=== PATIENT | male | born 1985 | race Caucasian/White ===

== ENCOUNTER 2018-09-11 22:11 | Emergency (ER) | payer MEDICAID ==
[~2018-09-11 22:11] MED LIST: HIV MEDICATION PO
--- NOTE | 2018-09-11 22:50 | NUR ---
CALLED IN WR, NO RESPONSE
--- NOTE | 2018-09-11 23:00 | NUR ---
CALLED IN WR, NO RESPONSE
--- NOTE | 2018-09-11 23:09 | NUR ---
CALLED IN WR, NO RESPONSE
== END 2018-09-11 23:10 | disposition left against medical advice (07) ==
LOC: ER 22:16
DX: Z53.21 Procedure and treatment not carried out due to patient leaving prior to being seen by health care provider (principal)

== ENCOUNTER 2018-09-12 00:25 | Emergency (ER) | payer MEDICAID ==
[~2018-09-12] VITALS: Ht 167.6 cm; Wt 63.5 kg
[2018-09-12 00:33] VITALS: BP 149/87
[2018-09-12] MEDS ORDERED: RIVAROXABAN 10 MG TABLET PO SCH (01:00)
[2018-09-12] MEDS ORDERED: RIVAROXABAN 10 MG TABLET ONE (01:08)
== END 2018-09-12 01:23 | disposition home or self-care (01) ==
LOC: ER 00:25
DX: F19.10 Other psychoactive substance abuse, uncomplicated (principal); F12.10 Cannabis abuse, uncomplicated; F17.200 Nicotine dependence, unspecified, uncomplicated; Z86.718 Personal history of other venous thrombosis and embolism; Z76.0 Encounter for issue of repeat prescription; Z86.14 Personal history of Methicillin resistant Staphylococcus aureus infection; Z86.19 Personal history of other infectious and parasitic diseases; Z59.0 Homelessness

== ENCOUNTER 2018-10-15 15:21 | Emergency (ER) | payer MEDICAID ==
[~2018-10-15] VITALS: Ht 167.6 cm; Wt 70.3 kg
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
[2018-10-15] MEDS ORDERED: HYDROCODONE/APAP 5/325MG 1 EACH TABLET ONE (15:47)
[2018-10-15] MEDS ORDERED: IBUPROFEN 600 MG TABLET PO ONE ×2 (15:47→16:00)
--- NOTE | 2018-10-15 15:50 | NUR ---
MEDICATION GIVEN, CALLED FOR FOOD TRAY
[2018-10-15] MEDS ORDERED: HYDROCODONE/APAP 5/325MG 1 EACH TABLET PO ONE (16:00)
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
--- NOTE | 2018-10-15 16:38 | NUR ---
READING INTERVENTIONIST AT BEDSIDE
[2018-10-15 16:52] VITALS: BP 142/78
--- NOTE | 2018-10-15 17:15 | NUR ---
INITIAL DUPLEX VENOUS LOWER EXT RIGHT SHOWED THROMBUS PRESENT AT CFV AND SFV LEVELS. PRELIM RESULTS ADVISED TO VLAD MACKAY AND CALLED ANCA YOST) TO HAVE STUDY CHECKED BY RADIOLOGIST.
--- NOTE | 2018-10-15 17:45 | NUR ---
Patient given written and verbal discharge instructions. Patient verbalizes understanding of instructions. Patient is ambulatory with steady gait. Refuses offer of long-term placement. Patient given list of available shelters in surrounding area [facility]. Patient discharged to home in stable condition. Written and verbal after care instructions given. Patient verbalizes understanding of instruction.
--- NOTE | 2018-10-15 17:55 | NUR ---
BEE PRODUCER AT BEDSIDE FOR BOOT APPLICATION AND TEACHING
== END 2018-10-15 18:00 | disposition home or self-care (01) ==
LOC: ER 15:21
DX: S92.342A Displaced fracture of fourth metatarsal bone, left foot, initial encounter for closed fracture (principal); S92.352A Displaced fracture of fifth metatarsal bone, left foot, initial encounter for closed fracture; S92.322A Displaced fracture of second metatarsal bone, left foot, initial encounter for closed fracture; S92.332A Displaced fracture of third metatarsal bone, left foot, initial encounter for closed fracture; L97.918 Non-pressure chronic ulcer of unspecified part of right lower leg with other specified severity; I82.491 Acute embolism and thrombosis of other specified deep vein of right lower extremity; F17.200 Nicotine dependence, unspecified, uncomplicated; Z59.0 Homelessness; Z86.19 Personal history of other infectious and parasitic diseases; X58.XXXA Exposure to other specified factors, initial encounter; Y93.02 Activity, running; Y92.89 Other specified places as the place of occurrence of the external cause; Y99.8 Other external cause status
CPT/HCPCS: 73630-TC; 93971-TC

== ENCOUNTER 2019-01-19 18:07 | Inpatient (IN) | payer MEDICAID ==
[~2019-01-19] VITALS: Ht 167.6 cm; Wt 57.2 kg
--- NOTE | 2019-01-19 18:22 | NUR ---
"CELLULITIS OF MY PENIS AND SCROTUM". C/O PAIN AND SWELLING IN GENITALS, REQUESTING CIRCUMCISION. PAIN IS 10/10, BURNING. "FEELS LIKE I'M PEEING RAZOR BLADES". ON MONITOR, IN GOWN, AND MADE COMFORTABLE. READY FOR EVAL.
[2019-01-19] MEDS ORDERED: IV NS 0.9% 1,000 ML BAG IV ONE (18:30)
[2019-01-19] MEDS ORDERED: MUPIROCIN OINT 2% 22 GM TUBE TP ONE (18:30)
[2019-01-19] MEDS ORDERED: CEFTRIAXONE 1GM BAG (ER ONLY) 1 GM/50 ML PIGGYBACK IV ONE (18:30)
[2019-01-19] MEDS ORDERED: FLAGYL/NS RTU 500 MG/100 ML PIGGYBACK IV ONE (18:30)
[2019-01-19] MEDS ORDERED: FLUCONAZOLE (100 MG) 100 MG TABLET PO ONE (18:30)
[2019-01-19] MEDS ORDERED: KETOROLAC TROMETHAMINE INJ 30 MG/ML VIAL IV ONE (18:30)
[2019-01-19] MEDS ORDERED: AZITHROMYCIN 250 MG TABLET PO ONE ×2 (18:30→19:30)
--- NOTE | 2019-01-19 18:30 | NUR ---
CALLED [facility]. DYE WEIGHER HELPER WAS PAGED
[2019-01-19] MEDS ORDERED: CEFTRIAXONE 1GM BAG (ER ONLY) 50 ML IV ONE (18:44)
[2019-01-19] MEDS ORDERED: KETOROLAC TROMETHAMINE 15 MG/ML VIAL ONE (18:44)
[2019-01-19] MEDS ORDERED: METRONIDAZOLE 500MG/ NS 100ML 100 ML IV ONE (18:44)
[2019-01-19] MEDS ORDERED: MUPIROCIN OINT 2% 22 GM TUBE ONE (18:44)
[2019-01-19] MEDS ORDERED: FLUCONAZOLE (100 MG) 100 MG TABLET ONE (18:45)
[2019-01-19 19:02] LABS: BASOPHILS % (AUTO) 0.6 % (0.0-2.0); EOSINOPHILS % (AUTO) 7.5 % (0.0-6.0); HEMATOCRIT 41 % (39-51); HEMOGLOBIN 14.2 g/dL (13.5-17.5); LYMPHOCYTES # (AUTO) 1.3 /CMM (0.8-4.8); LYMPHOCYTES % (AUTO) 18.3 % (20.0-44.0); MEAN CORPUSCULAR HGB CONC 34 g/dl (31.0-36.0); MEAN CORPUSCULAR VOLUME 95 fL (80-96); MONOCYTES # (AUTO) 0.4 /CMM (0.1-1.30); MONOCYTES % (AUTO) 6.1 % (2.0-12.0); NEUTROPHILS # (AUTO) 4.7 /CMM (1.8-8.9); NEUTROPHILS % (AUTO) 67.5 % (43.0-81.0); PLATELET COUNT (AUTO) 428 /CMM (150-450); RED BLOOD CELL COUNT(AUTO) 4.34 MIL/uL (4.5-6.0)
[2019-01-19 19:14] LABS: POTASSIUM 3.6 mmol/L (3.5-5.1)
[2019-01-19 19:15] LABS: CALCIUM, SERUM 9.2 mg/dL (8.5-10.1)
[2019-01-19 19:16] LABS: CREATININE 1.5 mg/dL (0.6-1.3)
--- NOTE | 2019-01-19 19:30 | NUR ---
EPIC CALLED. DR SAMUEL
--- NOTE | 2019-01-19 19:46 | NUR ---
EPIC WAS CALLED. DR SAMUEL
--- NOTE | 2019-01-19 19:51 | NUR ---
CALLED HOUSE SUP FOR MS BED
--- NOTE | 2019-01-19 20:07 | NUR ---
MS BED 314-2 GIVEN
[2019-01-19] MEDS ORDERED: IV NS 0.9% 1,000 ML IV PRN (20:09)
--- NOTE | 2019-01-19 20:14 | NUR ---
URINE COLLECTED AND SENT TO STAT LAB
--- NOTE | 2019-01-19 20:21 | NUR ---
REPORT GIVEN TO TENA CAIN FOR 314-2 MS
[2019-01-19 20:25] LABS: APPEARANCE,URINE Slightly Cloudy (CLEAR); BILIRUBIN,URINE MODERATE (NEGATIVE); BLOOD, URINE Trace-intact Ery/uL (NEGATIVE); COLOR,URINE Dark (YELLOW); KETONES,URINE Negative (NEGATIVE); LEUKOCYTE ESTERASE ,URINE Negative (NEGATIVE); NITRITE, URINE Negative (NEGATIVE); PH,URINE 5.5 (5.0-8.0); PROTEIN,URINE 100 mg/dl (NEGATIVE); UGLUCOSE Negative (NEGATIVE); UROBILINOGEN,URINE 0.2 EU/dL (0.2)
[2019-01-19] MEDS ORDERED: ACETAMINOPHEN 325 MG TABLET PO PRN (20:30)
[2019-01-19] MEDS ORDERED: MAG HYDROX/AL HYDROX/SIMETH 30 ML UDC PO PRN (20:30)
[2019-01-19] MEDS ORDERED: ONDANSETRON HCL/PF 4 MG/2 ML VIAL IVP PRN (20:30)
[2019-01-19] MEDS ORDERED: Z GUARD REMEDY 2 OZ OINT TP PRN (20:30)
[2019-01-19] MEDS ORDERED: MAGNESIUM HYDROXIDE 30 ML UDC PO PRN (20:30)
[2019-01-19 20:45] VITALS: BP 136/84
--- NOTE | 2019-01-19 20:45 | NUR ---
[facility]
--- NOTE | 2019-01-19 20:45 | NUR ---
MS RN NOTE PT ARRIVED TO FLOOR VIA GURNEY ACCOMPANIED BY ER PERSONNEL. RECEIVED PT IN STABLE CONDITION A&O X4, ABLE TO MAKE NEEDS KNOWN. NO SIGNS OF SOB OR DISTRESS, NO C/O PAIN. BODY ASSESSED AND PHOTOS TAKEN FOR ADMISSION. ALL BELONGINGS ACCOUNTED FOR AND PLACED IN CHART. IV IN PLACE. ALL CURRENT NEEDS ATTENDED TO. BED LOW, LOCKED, UPPER RAILS UP, AND CALL LIGHT WITHIN REACH WILL CONT. TO MONITOR.
[2019-01-19 20:47] LABS: BACTERIA,URINE Moderate /HPF (None Seen); HYALINE CASTS, URINE Moderate /LPF (None Seen); SQUAMOUS EPITHELIAL CELL,UR Few /HPF (None Seen)
[2019-01-19 20:48] LABS: MUCUS,URINE Many /LPF (None Seen); RBC,URINE 0-2 /HPF (0-2)
--- NOTE | 2019-01-19 21:36 | NUR ---
MS RN NOTE LAB CALLED, PT. IS REFUSING LAB DRAW FOR HIV RNA REAL TIME PCR. RISKS AND BENEFITS MADE AWARE WITH VERBALIZATION OF UNDERSTANDING.
--- NOTE | 2019-01-19 21:46 | NUR ---
MS RN NOTE PT REFUSING IVF FLUIDS STATING, "IF I HAVE FLUIDS, I'LL HAVE TO PEE AND IT HURTS TO PEE. I DON'T WANT IT RIGHT NOW." RISKS AND BENEFITS MADE AWARE WITH VERBALIZATION OF UNDERSTANDING. WILL CONT. TO MONITOR.
[2019-01-19] MEDS: CEPHALEXIN MONOHYDRATE 500 MG CAPSULE PO SCH (21:57)
[2019-01-19] MEDS ORDERED: VANCOMYCIN 1 GM VIAL ONE (23:17)
[2019-01-19] MEDS: ENOXAPARIN SODIUM 40 MG/0.4 ML DISP.SYRIN SQ SCH (23:22)
[2019-01-19] MEDS ORDERED: VANCOMYCIN 1 GM in IV D5W 250ml IV ONE (23:30)
[2019-01-20] MEDS: HYDROCODONE/APAP 5/325MG 1 EACH TABLET PO PRN ×4 (00:06→20:59)
--- NOTE | 2019-01-20 00:06 | NUR ---
RN medsurg notes Administered [place] 5/325mg 1 Tab PO as ordered for pain in the penis and scrotum area 7/10 on pain scale per Pt request. Will continue to monitor.
--- NOTE | 2019-01-20 06:18 | NUR ---
MS RN NOTE PT IN STABLE CONDITION A&O X4, ABLE TO MAKE NEEDS KNOWN. NO SIGNS OF SOB OR DISTRESS, NO C/O PAIN. IV IN PLACE WITH IVF INFUSING. ALL CURRENT NEEDS ATTENDED TO. BED LOW, LOCKED, UPPER RAILS UP, AND CALL LIGHT WITHIN REACH WILL CONT. TO MONITOR AND ENDORSE TO NEXT SHIFT FOR MARÍA.
[2019-01-20] MEDS ORDERED: PANTOPRAZOLE 40 MG TABLET.DR PO SCH (07:30)
--- NOTE | 2019-01-20 07:32 | NUR ---
RN MS OPENING NOTES Received patient on room air, no sob noted. Patient denies pain at this time. Patient remains on IVF NS @ 75 mL per hour. Infusing well and has no obstruction. Bed at the lowest setting, call light within reach.
[2019-01-20] MEDS: CEPHALEXIN MONOHYDRATE 500 MG CAPSULE PO SCH ×3 (08:16→16:31)
[2019-01-20] MEDS: DOCUSATE SODIUM 100 MG CAPSULE PO SCH ×2 (08:16→16:32)
[2019-01-20] MEDS: METRONIDAZOLE 500 MG TABLET PO SCH ×2 (08:16→16:31)
[2019-01-20 08:20] VITALS: BP 112/68
[2019-01-20] MEDS: CLOTRIMAZOLE/BETAMETASONE DIPROPIONATE 15 GM TUBE TP SCH ×2 (08:32→16:32)
[2019-01-20] MEDS ORDERED: NICOTINE PATCH (14MG) 14 MG PATCH.TD24 TD SCH (09:00)
[2019-01-20 09:44] LABS: EOSINOPHILS % (AUTO) 21.2 % (0.0-6.0); HEMATOCRIT 42 % (39-51); HEMOGLOBIN 14.1 g/dL (13.5-17.5); LYMPHOCYTES # (AUTO) 1.2 /CMM (0.8-4.8); LYMPHOCYTES % (AUTO) 25.5 % (20.0-44.0); MEAN CORPUSCULAR HGB CONC 34 g/dl (31.0-36.0); MEAN CORPUSCULAR VOLUME 95 fL (80-96); MONOCYTES # (AUTO) 0.3 /CMM (0.1-1.30); MONOCYTES % (AUTO) 6.3 % (2.0-12.0); NEUTROPHILS # (AUTO) 2.1 /CMM (1.8-8.9); PLATELET COUNT (AUTO) 359 /CMM (150-450); RED BLOOD CELL COUNT(AUTO) 4.37 MIL/uL (4.5-6.0); WHITE BLOOD COUNT (AUTO) 4.6 K/uL (4.3-11.0)
[2019-01-20 09:58] LABS: ALBUMIN 3.4 g/dL (3.4-5.0); BILIRUBIN,TOTAL 0.9 mg/dL (0.2-1.0); CALCIUM, SERUM 8.7 mg/dL (8.5-10.1); MAGNESIUM 1.9 mg/dL (1.8-2.4); PHOSPHORUS 3.1 mg/dL (2.5-4.9); POTASSIUM 3.3 mmol/L (3.5-5.1); TOTAL PROTEIN, SERUM 7.9 g/dL (6.4-8.2)
[2019-01-20 10:04] LABS: THYROID STIMULATING HORMONE 0.929 uIU/mL (0.358-3.74)
[2019-01-20 10:12] LABS: LYMPHOCYTES % (MANUAL) 31 % (16-48); NEUTROPHILS % (MANUAL) 42 (42-76)
[2019-01-20 10:13] LABS: EOSINOPHILS % (MANUAL) 24 % (0-4); MONOCYTES % (MANUAL) 2 % (0-11.0)
[2019-01-20] MEDS ORDERED: VANCOMYCIN 0.75 GM in IV D5W 250 ML IV SCH ×2 (11:00→18:00)
[2019-01-20] MEDS ORDERED: FEE PK DOSING 1 MIN EA MC ONE (13:25)
[2019-01-20 16:00] VITALS: BP 109/57
[2019-01-20] MEDS ORDERED: FLUCONAZOLE (100 MG) 100 MG TABLET PO SCH (17:00)
--- NOTE | 2019-01-20 18:18 | NUR ---
RN MS NOTES CLOSING Patient remains on room air, no sob noted. Patient only states that he has pain on his penis area and foot. Patient remains a/o x4, although patient does talk to himself often. Patient's IVF at 75 mL per hour, on Left AC #20 remains patent, unobstructed at this time. All medications and needs attended to, bed at the lowest setting, call light within reach. Will give report to NOC RN for MARÍA.
[2019-01-20] MEDS ORDERED: ACYCLOVIR 200 MG CAPSULE PO SCH (18:30)
--- NOTE | 2019-01-20 19:15 | NUR ---
RN MS NOTES RECEIVED PT IN BED AWAKE AND ABLE TO MAKE NEEDS KNOWN. PT A/O X4. RESPIRATIONS EVEN AND UNLABORED WITH NO S/S OF ACUTE DISTRESS OR SOB NOTED. PT DENIES PAIN AT THIS TIME. SAFETY MEASURES IN PLACE WITH BED IN LOWEST LOCKED POSITION WITH SIDE RAILS UP X2. CALL LIGHT WITHIN REACH. WILL CONTINUE TO MONITOR.
[2019-01-20] MEDS ORDERED: CEFTRIAXONE 1 G in IV D5W 50 ML IV SCH (20:00)
[2019-01-20 20:51] VITALS: BP 133/80
[2019-01-20] MEDS: ENOXAPARIN SODIUM 40 MG/0.4 ML DISP.SYRIN SQ SCH (20:58)
[2019-01-20] MEDS ORDERED: DOXYCYCLINE HYCLATE (100 MG) 100 MG TABLET PO SCH (21:00)
--- NOTE | 2019-01-20 21:00 | NUR ---
MS RN NOTES PT REFUSED FOR PICTURES TO BE TAKEN, PT STATED THAT HE ALREADY HAD THEM TAKEN THE NIGHT BEFORE NOTHING WOULD HAVE REALLY CHANGED.
--- NOTE | 2019-01-20 22:30 | NUR ---
MS RN NOTES REPORT GIVEN BY GABRIELA MADSEN,PATIENT LAYING COMFORTABLY ON BED, A/O X4,NO SOB,ABLE TO VERBALIZED NEEDS,LEFT ELG CELLULITIS ELEVATED ON PILLOWS.CALL LIGHT IN REACH,NEEDS ANTICIPATED.
--- NOTE | 2019-01-21 06:30 | NUR ---
MS RN NOTES PATIENT VERBALIZED "IM GOING HOME TODAY".PATIENT WAS ADVISED TO WAIT FOR DISCHARGE ORDER,THAT HE NEEDS TO BE SEEN BY .NET DEVELOPER FOR HIM TO HAVE A PLACE TO GO.PATIENT SAYS "I CANT WAIT,I NEED TO GO TO CLINIC A[address] [address] TO GET MY HIV MEDICINE,IM DISCHARGING MY SELF AND IM WILLING TO SIGN THE FORM.
--- NOTE | 2019-01-21 06:35 | NUR ---
MS RN NOTES SPOKE TO KIARA ABOUT PATIENT PLAN,AND SHE SAID HE CAN GO PROVIDED HE SIGN THE HOMELESS WAIVER FORM AND THE AMA FORM.
--- NOTE | 2019-01-21 06:45 | NUR ---
MS RN NOTES PATIENT LEFT THE UNIT AT THIS TIME,HOMELESS WAIVER SIGNED,AMA FORM SIGNED,SALINE LOCK AND ID BAND REMOVED.EXPLAINED RISK AND BENEFITS OF GOING AMA BUT STILL REFUSED.
[2019-01-21 07:06] LABS: *BASOS 1 % (Not Estab.); *EOS 6 % (Not Estab.); *EOS, ABSOLUTE 0.4 x10E3/uL (0.0-0.4); *HCT 39.4 % (37.5-51.0); *HGB 13.1 g/dL (13.0-17.7); *IMMATURE GRANULOCYTES 1 % (Not Estab.); *IMMATURE GRANULOCYTES(ABS) 0.1 x10E3/uL (0.0-0.1); *LYMPHOCYTES 25 % (Not Estab.); *LYMPHS, ABSOLUTE 1.6 x10E3/uL (0.7-3.1); *MCH 31.5 pg (26.6-33.0); *MCHC 33.2 g/dL (31.5-35.7); *MCV 95 fL (79-97); *MONOCYTES 8 % (Not Estab.); *MONOS, ABSOLUTE 0.5 x10E3/uL (0.1-0.9); *NEUTROPHILS 59 % (Not Estab.); *NEUTROPHILS, ABSOLUTE 3.8 x10E3/uL (1.4-7.0); *PLT 410 x10E3/uL (150-450); *RBC 4.16 x10E6/uL (4.14-5.80); *RDW 13.9 % (12.3-15.4)
[2019-01-21 07:11] LABS: CALCIUM, SERUM 8.1 mg/dL (8.5-10.1); CREATININE 0.8 mg/dL (0.6-1.3); POTASSIUM 3.6 mmol/L (3.5-5.1)
[2019-01-21 10:13] LABS: *% CD 4 POS. LYMPH 32.6 % (30.8-58.5); *% CD 8 POS. LYMPH 55.7 % (12.0-35.5); *ABSOLUTE CD 4 HELPER 522 /uL (359-1519); *ABSOLUTE CD 8 SUPPRESSOR 891 /uL (109-897); *CD4/CD8 RATIO 0.59 (0.92-3.72)
[2019-01-21] MEDS ORDERED: FLUCONAZOLE (100 MG) 100 MG TABLET PO SCH (17:00)
== END 2019-01-21 06:45 | disposition left against medical advice (07) | DRG 501 ==
LOC: ER 18:10 → MED 20:15
PROVIDERS: ADMIT Registered Nurse; ATTEND Nurse Practitioner Acute Care
DX: N47.6 Balanoposthitis (principal); N17.0 Acute kidney failure with tubular necrosis; D89.9 Disorder involving the immune mechanism, unspecified; Z59.0 Homelessness; E86.0 Dehydration; Z91.19 Patient's noncompliance with other medical treatment and regimen; Z86.718 Personal history of other venous thrombosis and embolism; F12.90 Cannabis use, unspecified, uncomplicated; Z86.19 Personal history of other infectious and parasitic diseases; Z72.0 Tobacco use
CPT/HCPCS: 36415; 80048-TC; 80053-TC; 80061-TC; 81000-TC; 83605-TC; 83735-TC; 84100-TC; 84443-TC; 85025-TC; 85652-TC; 85730-TC; 86360; 86694; 87040-TC; 87070-TC; 87081-TC; 87491; 87536; 87591; G0378; G0480; J0696; J1650; J1885; J3370; J3490; J7030; J7060

== ENCOUNTER 2019-06-15 12:10 | Emergency (ER) | payer MEDICAID ==
[~2019-06-15] VITALS: Ht 167.6 cm; Wt 68.9 kg
[2019-06-15 12:20] VITALS: BP 127/68
[2019-06-15] MEDS ORDERED: CEPHALEXIN MONOHYDRATE 500 MG CAPSULE PO ONE ×2 (13:14→13:30)
[2019-06-15] MEDS ORDERED: ACETAMINOPHEN 325 MG TABLET ONE (13:14)
[2019-06-15] MEDS ORDERED: HYDROCODONE/APAP 5/325MG 1 EACH TABLET ONE (13:14)
--- NOTE | 2019-06-15 13:24 | NUR ---
Patient discharged to home in stable condition. Written and verbal after care instructions given. Patient verbalizes understanding of instruction.
[2019-06-15] MEDS ORDERED: HYDROCODONE/APAP 5/325MG 1 EACH TABLET PO ONE (13:30)
[2019-06-15] MEDS ORDERED: ACETAMINOPHEN 325 MG TABLET PO ONE (13:30)
== END 2019-06-15 13:25 | disposition home or self-care (01) ==
LOC: ER 12:12
DX: L03.115 Cellulitis of right lower limb (principal); F17.200 Nicotine dependence, unspecified, uncomplicated; Z86.14 Personal history of Methicillin resistant Staphylococcus aureus infection; Z86.19 Personal history of other infectious and parasitic diseases; Z86.718 Personal history of other venous thrombosis and embolism; Z88.6 Allergy status to analgesic agent; Z59.0 Homelessness

== ENCOUNTER 2019-06-24 17:53 | Emergency (ER) | payer MEDICAID ==
[~2019-06-24] VITALS: Ht 167.6 cm; Wt 67.1 kg
[2019-06-24 18:43] VITALS: BP 121/71
--- NOTE | 2019-06-24 19:30 | NUR ---
CALLED PT TO BE PLACED INTO ROOM, NOT IN WAITING ROOM
--- NOTE | 2019-06-24 19:57 | NUR ---
CALLED PT TO BE PLACED IN ROOM, NOT IN WAITING ROOM
[2019-06-25] MEDS ORDERED: RIVA10TA PO (19:02)
[2019-06-25] MEDS ORDERED: ABAC1TAB15 PO (19:02)
== END 2019-06-24 20:03 | disposition left against medical advice (07) ==
LOC: ER 17:53
DX: Z53.21 Procedure and treatment not carried out due to patient leaving prior to being seen by health care provider (principal)

== ENCOUNTER 2019-06-25 17:35 | Inpatient (IN) | payer MEDICAID ==
[~2019-06-25] VITALS: Ht 167.6 cm; Wt 67.6 kg
--- NOTE | 2019-06-25 17:52 | NUR ---
"C/O R LEG SWELLING AND PAIN ON ANTIBIOTIC TREATMENT" PT AAOX4, -SOB, NAD NOTED, VSS, PENDING MD KUMAR
[2019-06-25] MEDS ORDERED: MORPHINE SULFATE INJ 10 MG/ML DISP.SYRIN IV ONE (18:30)
[2019-06-25] MEDS ORDERED: VANCOMYCIN 1 GM in IV D5W 250 ML IV ONE (18:30)
[2019-06-25] MEDS ORDERED: IV NS 0.9% 500 ML BAG IV ONE (18:30)
[2019-06-25] MEDS ORDERED: ONDANSETRON HCL/PF - ER 4 MG/2 ML VIAL IV ONE (18:30)
[2019-06-25] MEDS ORDERED: LIDOCAINE 2%-EPI 1:100,000 30 ML VIAL TP ONE (18:30)
[2019-06-25] MEDS ORDERED: PIPERACILLIN /TAZOBACTAM 3.375 G in IV D5W 50 ML IV ONE (18:30)
[2019-06-25] MEDS ORDERED: TDAP [DIPH/PERTUSSIS/TET] 0.5 ML VIAL IM ONE ×2 (18:30→20:04)
[2019-06-25 18:36] LABS: BASOPHILS % (AUTO) 1.2 % (0.0-2.0); EOSINOPHILS % (AUTO) 3.4 % (0.0-6.0); HEMATOCRIT 39 % (39-51); HEMOGLOBIN 13.1 g/dL (13.5-17.5); LYMPHOCYTES # (AUTO) 1.3 /CMM (0.8-4.8); LYMPHOCYTES % (AUTO) 39.5 % (20.0-44.0); MEAN CORPUSCULAR HGB CONC 34 g/dl (31.0-36.0); MEAN CORPUSCULAR VOLUME 102 fL (80-96); MONOCYTES # (AUTO) 0.4 /CMM (0.1-1.30); MONOCYTES % (AUTO) 10.5 % (2.0-12.0); NEUTROPHILS # (AUTO) 1.5 /CMM (1.8-8.9); NEUTROPHILS % (AUTO) 45.4 % (43.0-81.0); PLATELET COUNT (AUTO) 288 /CMM (150-450); RED BLOOD CELL COUNT(AUTO) 3.87 MIL/uL (4.5-6.0); WHITE BLOOD COUNT (AUTO) 3.4 K/uL (4.3-11.0)
[2019-06-25] MEDS ORDERED: LIDOCAINE 1%-EPI 1:100,000 20 ML VIAL ONE (18:36)
[2019-06-25] MEDS ORDERED: ONDANSETRON HCL/PF 4 MG/2 ML VIAL ONE (18:40)
[2019-06-25] MEDS ORDERED: MORPHINE SULFATE INJ 4 MG/ML DISP.SYRIN ONE (18:41)
[2019-06-25 18:55] LABS: ALBUMIN 3.5 g/dL (3.4-5.0); BILIRUBIN,DIRECT 0.1 mg/dL (0.0-0.2); BILIRUBIN,TOTAL 0.4 mg/dL (0.2-1.0); CALCIUM, SERUM 8.9 mg/dL (8.5-10.1); CREATININE 0.9 mg/dL (0.6-1.3); POTASSIUM 3.4 mmol/L (3.5-5.1); TOTAL PROTEIN, SERUM 7.4 g/dL (6.4-8.2)
[2019-06-25] MEDS ORDERED: RIVA10TA PO (19:02)
[2019-06-25] MEDS ORDERED: ABAC1TAB15 PO (19:02)
[2019-06-25] MEDS ORDERED: POTASSIUM CHLORIDE 20 MEQ TAB.PRT.SR PO ONE ×2 (20:00→20:04)
--- NOTE | 2019-06-25 21:20 | NUR ---
REPORT GIVEN TO KENY MADSEN FOR MARÍA PT TRANSPORTED TO 3RD FLOOR VIA [facility]
[2019-06-25] MEDS ORDERED: ZOLPIDEM TARTRATE 5 MG TABLET PO PRN (21:30)
[2019-06-25] MEDS ORDERED: MAG HYDROX/AL HYDROX/SIMETH 30 ML UDC PO PRN (21:30)
[2019-06-25] MEDS ORDERED: ONDANSETRON HCL/PF 4 MG/2 ML VIAL IVP PRN (21:30)
[2019-06-25] MEDS ORDERED: MAGNESIUM HYDROXIDE 30 ML UDC PO PRN (21:30)
[2019-06-25] MEDS ORDERED: Z GUARD REMEDY 2 OZ OINT TP PRN (21:30)
[2019-06-25] MEDS ORDERED: ACETAMINOPHEN 325 MG TABLET PO PRN (21:30)
[2019-06-25 21:32] VITALS: BP 140/88
[2019-06-25 21:35] VITALS: BP 140/88
--- NOTE | 2019-06-25 21:40 | NUR ---
ADMISSION 34 Y/O [facility] for Cellulitis. Right inner lower leg/ankle warmth, dressing slightly soiled with blood. s/p I&D in ED prior transferred to unit. Patient is A/O x4 reports right leg pain, education provided on pain scale [place] indication and possible side effect. Orientation to room, unit, staff. Instructed to use call light for assistance, verbalized understanding.
[2019-06-25] MEDS: HYDROCODONE/APAP 5/325MG 1 EACH TABLET PO PRN (21:43)
--- NOTE | 2019-06-26 06:12 | NUR ---
END OF SHIFT REPORT Patient in bed, stable oxygen saturation on RA. Right lower leg pain dressing clean and dry, pain controlled with PRN [place]. On scheduled IV antibiotic, Afebrile overnight. GS wound cx pending result. Maintained safety.
[2019-06-26 06:53] LABS: BASOPHILS % (AUTO) 0.6 % (0.0-2.0); EOSINOPHILS % (AUTO) 4.5 % (0.0-6.0); HEMATOCRIT 41 % (39-51); HEMOGLOBIN 13.6 g/dL (13.5-17.5); LYMPHOCYTES # (AUTO) 1.4 /CMM (0.8-4.8); LYMPHOCYTES % (AUTO) 33.4 % (20.0-44.0); MEAN CORPUSCULAR HGB CONC 34 g/dl (31.0-36.0); MEAN CORPUSCULAR VOLUME 102 fL (80-96); MONOCYTES # (AUTO) 0.4 /CMM (0.1-1.30); MONOCYTES % (AUTO) 9.6 % (2.0-12.0); NEUTROPHILS # (AUTO) 2.1 /CMM (1.8-8.9); NEUTROPHILS % (AUTO) 51.9 % (43.0-81.0); PLATELET COUNT (AUTO) 269 /CMM (150-450); RED BLOOD CELL COUNT(AUTO) 3.99 MIL/uL (4.5-6.0); WHITE BLOOD COUNT (AUTO) 4.1 K/uL (4.3-11.0)
[2019-06-26 06:58] LABS: CALCIUM, SERUM 8.3 mg/dL (8.5-10.1); CREATININE 0.8 mg/dL (0.6-1.3); MAGNESIUM 2.1 mg/dL (1.8-2.4); PHOSPHORUS 4.1 mg/dL (2.5-4.9); POTASSIUM 4.2 mmol/L (3.5-5.1)
--- NOTE | 2019-06-26 07:55 | NUR ---
MS RN NOTES PATIENT RECEIVED RESTING INSIDE ROOM. SLEEPING, EASILY AROUSABLE THROUGH VERBAL AND TACTILE STIMULI. BREATHING EVEN AND UNLABORED. NO ACUTE DISTRESS. WILL CONTINUE TO MONITOR. BED LOCKED AND IN LOW POSITION. BILATERAL UPPER SIDE RAILS UP AND LOCKED. CALL LIGHT WITHIN EASY REACH
[2019-06-26 08:00] VITALS: BP 118/71
[2019-06-26] MEDS: TRIUMEQ PO SCH (08:41)
[2019-06-26] MEDS: HYDROCODONE/APAP 5/325MG 1 EACH TABLET PO PRN ×3 (08:42→18:39)
[2019-06-26] MEDS: VANCOMYCIN 1 GM in IV D5W 250 ML IV SCH ×2 (08:43→16:09)
[2019-06-26] MEDS: RIVAROXABAN 10 MG TABLET PO SCH (08:43)
--- NOTE | 2019-06-26 11:30 | NUR ---
SS Consult requested for pt. by Dr. Centeno for possible homelessness. Per EMR, the pt. walked in to ER for DVT. Upon SS consultation the pt. presented lying in bed, awake and was receptive to meeting with SW. The pt. appears disheveled, restless with pressured speech and avoidant eye contact. The pt. was alert and oriented x4. The pt. expressed [facility] and is currently experiencing homelessness. Per pt. he currently resides at the [facility] [[id number] [place] [id number]; [phone]]. Per pt. he currently receives $200 in General Relief and $91 in food [place]. Per pt. he just applied for Social Security benefits a week ago. Per pt. his cell phone #[phone] and his point of contact is his father, Feng Villarreal [phone] who is involved and supportive. offered the pt. group home placement, however, pt. declined. The pt. expressed that he plans to reside at the [facility] once ready for discharge since all his medical providers and resources are nearby. The pt. stated that he has been diagnosed with Schizoaffective disorder in the past. Per patient, he is currently prescribed 40mg Seroquel and 20mg Prozac. Patient stated, the medication is working for me. The patients expressed that he has Hx. of ETOH use and his choice of drink is 3 beers/day and liquor 2x/month. provided pt. with Substance use and other Homelessness resources including: [facility] at [address] [facility] [place] ; [facility] [place], [address] [place] ; [facility], [address] [place] ; [facility] Homeless Resource Directory which includes food stamps, transitional housing, showers and hot meals etc; Mental Health clinics such as [facility] ; [facility] ; Health clinics; [facility] and Alcohol treatment centers such as [facility], ; [facility] Substance Abuse Hotline and [facility] . The pt. remained cooperative throughout interview. Pt. denies HI/SI and denies hallucination at this time. SW provided pt. with homeless group home resources and homeless waiver in the chart for pt. to sign upon discharge. Charge Nurse Notified.
[2019-06-26] MEDS ORDERED: PIPERACILLIN /TAZOBACTAM 3.375 G in IV D5W 50 ML IV ONE (12:00)
[2019-06-26] MEDS ORDERED: FEE PK DOSING 1 MIN EA MC ONE (12:20)
[2019-06-26 16:00] VITALS: BP 119/66
--- NOTE | 2019-06-26 18:46 | NUR ---
MS RN NOTES PATIENT RESTING INSIDE ROOM. AWAKE, ALERT AND ORIENTED X 4, NO ACUTE DISTRESS. DENIES ANY PAIN OR DISCOMFORT. NO CHANGES IN LOC NOTED. PATIENT CALM AND RELAXED. SAFETY PRECAUTIONS IN PLACE. WILL ENDORSE TO INCOMING SHIFT FOR MARÍA. BED LOCKED AND IN LOW POSITION. BILATERAL UPPER SIDE RAILS UP AND LOCKED. CALL LIGHT WITHIN EASY REACH
--- NOTE | 2019-06-26 19:05 | NUR ---
CHANGED OF SHIFT REPORT Patient in bed, awake, appears anxious to go smoke cigarette, denies SOB. Education provided, declined smoking cessation education. Right lower leg pain dressing clean and dry, reports pain 4/10 after PRN [place]. Instructed to use call light for assistance, verbalized understanding. Maintained safety.
[2019-06-26 20:00] VITALS: BP 138/82
[2019-06-26 20:43] VITALS: BP 138/82
[2019-06-26] MEDS: PIPERACILLIN /TAZOBACTAM 3.375 G in IV D5W 100 ML IV SCH (21:12)
[2019-06-27] MEDS: VANCOMYCIN 1 GM in IV D5W 250 ML IV SCH ×2 (00:54→08:00)
[2019-06-27] MEDS: HYDROCODONE/APAP 5/325MG 1 EACH TABLET PO PRN ×5 (03:23→21:09)
[2019-06-27] MEDS: PIPERACILLIN /TAZOBACTAM 3.375 G in IV D5W 100 ML IV SCH ×3 (05:10→21:41)
--- NOTE | 2019-06-27 06:12 | NUR ---
END OF SHIFT REPORT Patient in bed, stable oxygen saturation on RA. Right lower leg wound dressing clean and dry, ankle pain controlled with PRN [place]. On scheduled IV antibiotic, Afebrile overnight. GS wound cx pending result. Maintained safety.
--- NOTE | 2019-06-27 07:42 | NUR ---
MS RN NOTES PATIENT RECEIVED RESTING INSIDE ROOM. AWAKE, ALERT AND ORIENTED X 4, VERBALLY RESPONSIVE AND RESPONDS TO VERBAL AND TACTILE STIMULI. NO CHANGES IN LOC NOTED AT THIS TIME. PATIENT CALM AND RELAXED. IV INFUSING ORDERED. SAFETY PRECAUTIONS IN PLACE. WILL CONTINUE TO MONITOR. BED LOCKED AND IN LOW POSITION. BILATERAL UPPER SIDE RAILS UP AND LOCKED. CALL LIGHT WITHIN EASY REACH
[2019-06-27 07:43] LABS: BASOPHILS % (AUTO) 0.5 % (0.0-2.0); EOSINOPHILS % (AUTO) 6.2 % (0.0-6.0); HEMATOCRIT 41 % (39-51); HEMOGLOBIN 13.6 g/dL (13.5-17.5); LYMPHOCYTES # (AUTO) 1.1 /CMM (0.8-4.8); LYMPHOCYTES % (AUTO) 32.8 % (20.0-44.0); MEAN CORPUSCULAR HGB CONC 34 g/dl (31.0-36.0); MEAN CORPUSCULAR VOLUME 101 fL (80-96); MONOCYTES # (AUTO) 0.3 /CMM (0.1-1.30); MONOCYTES % (AUTO) 9.9 % (2.0-12.0); NEUTROPHILS # (AUTO) 1.7 /CMM (1.8-8.9); NEUTROPHILS % (AUTO) 50.6 % (43.0-81.0); PLATELET COUNT (AUTO) 250 /CMM (150-450); RED BLOOD CELL COUNT(AUTO) 4.01 MIL/uL (4.5-6.0); WHITE BLOOD COUNT (AUTO) 3.4 K/uL (4.3-11.0)
[2019-06-27 07:50] LABS: CALCIUM, SERUM 8.7 mg/dL (8.5-10.1); CREATININE 0.9 mg/dL (0.6-1.3); POTASSIUM 4.1 mmol/L (3.5-5.1)
[2019-06-27 08:00] VITALS: BP 118/72
--- NOTE | 2019-06-27 08:10 | NUR ---
MS RN NOTES VANCO TROUGH LEVEL 21, VANCOMYCIN DOSE HELD THIS AM. CALLED PHARMACY AND MADE AWARE. WILL CONTINUE TO MONITOR
[2019-06-27] MEDS: RIVAROXABAN 10 MG TABLET PO SCH (08:50)
[2019-06-27] MEDS: TRIUMEQ PO SCH (09:47)
--- NOTE | 2019-06-27 10:24 | NUR ---
WOUND CARE CONSULT WOUND CARE RECEIVED CONSULT FOR RIGHT LOWER LEG/ANKLE WOUND S/P I+D IN THE ED. WOUND CARE WILL DEFER CONSULT AND TREATMENT PLAN TO DPM DR TODD WHO IS CURRENTLY FOLLOWING THIS PATIENT. PATIENT WITH ECHO AT 20, WILL SEE PRN.
[2019-06-27 16:00] VITALS: BP 121/54
[2019-06-27] MEDS: VANCOMYCIN 0.75 GM in IV D5W 250 ML IV SCH ×2 (16:56→23:03)
[2019-06-27] MEDS: LACTOBACILLUS RHAMNOSUS GG 1 EACH CAP.SPRINK PO SCH (16:57)
--- NOTE | 2019-06-27 18:34 | NUR ---
MS RN NOTES PATENT AWAKE, ALERT AND ORIENTED X 4. NO ACUTE DISTRESS. DENIES ANY PAIN OR DISCOMFORT. NO CHANGES IN LOC NOTED. PATIENT CALM AND RELAXED. PATIENT KEPT CLEAN, DRY AND COMFORTABLE. WOUND TX DONE ORDERED AND PATIENT TOLERATED WELL. WILL ENDORSE TO INCOMING SHIFT FOR MARÍA. BED LOCKED AND IN LOW POSITION. BILATERAL UPPER SIDE RAILS UP AND LOCKED. CALL LIGHT WITHIN EASY REACH
--- NOTE | 2019-06-27 19:13 | NUR ---
MS RN NOTES PATIENT RESTING INSIDE ROOM. NO ACUTE DISTRESS. REPORT GIVEN TO JIE MADSEN FOR MARÍA.
[2019-06-27 20:00] VITALS: BP 132/73
--- NOTE | 2019-06-27 21:11 | NUR ---
RN NOTES COMPLAINED OF RIGHT LEG- NORCO 5/325MG PO GIVEN ORDERED, V/S STABLE
--- NOTE | 2019-06-27 22:30 | NUR ---
ms/rn notes RECEIVED ENDORSEMENT FROM RN FOR CONTINUITY OF CARE.ATIENT ALERT, ORIENTED X3, ABLE TO VERBALIZE NEEEDS,
--- NOTE | 2019-06-28 | NUR ---
/TENA NOTES VANCOMYCIN TROUGH LEVEL HIGH AT 21, HELD VANCOMYCIN ANTIBIOTIC AND TO CALL PHARMACY FOR DOSING. Addendum: 06/28/19 at 0332 by DEMARCO PEARSON RN PER PHARMACY TO ADMINISTER WITH REQUIRED ADJUSTED DOSE
[2019-06-28] MEDS: VANCOMYCIN 0.75 GM in IV D5W 250 ML IV SCH ×2 (01:00→08:45)
--- NOTE | 2019-06-28 02:49 | NUR ---
MS/RN NOTES VANCOMYCIN TO ADMINISTER PER PHARMACY VANCO TROUGH LEVEL WAS DRAWN SEVERAL HOURS AGO TO ADMINISTER.
[2019-06-28 03:06] LABS: *BASOS 1 % (Not Estab.); *EOS 5 % (Not Estab.); *EOS, ABSOLUTE 0.2 x10E3/uL (0.0-0.4); *HCT 40.1 % (37.5-51.0); *HGB 13.7 g/dL (13.0-17.7); *IMMATURE GRANULOCYTES 1 % (Not Estab.); *LYMPHOCYTES 29 % (Not Estab.); *LYMPHS, ABSOLUTE 1.2 x10E3/uL (0.7-3.1); *MCH 33.2 pg (26.6-33.0); *MCHC 34.2 g/dL (31.5-35.7); *MCV 97 fL (79-97); *MONOCYTES 9 % (Not Estab.); *MONOS, ABSOLUTE 0.4 x10E3/uL (0.1-0.9); *NEUTROPHILS 55 % (Not Estab.); *NEUTROPHILS, ABSOLUTE 2.4 x10E3/uL (1.4-7.0); *PLT 279 x10E3/uL (150-450); *RBC 4.13 x10E6/uL (4.14-5.80); *RDW 15.3 % (12.3-15.4)
[2019-06-28] MEDS: PIPERACILLIN /TAZOBACTAM 3.375 G in IV D5W 100 ML IV SCH (04:41)
--- NOTE | 2019-06-28 06:35 | NUR ---
MS/RN NOTES PATIENT IN BED, ALERT, ORIENTED X3, ABLE TO VERBALIZE NEEDS, RESPIRATIONS EVEN AND UNLABORED, NO PAIN REPORTED AND OBSERVED. ON IV ANTIBIOTIC, ADMINISTERED DURING THE SHIFT FOR CELLULITIES ON RLE. DRESSING DRY AND INTACT. BED LOCKED, CALL LIGHTS WITHIN REACH. WILL MONITOR AND ENDORSE TO AM RN FOR MARÍA. IV ON RIGHT HAND INTACT AND PATENT.
[2019-06-28 07:02] LABS: CALCIUM, SERUM 8.4 mg/dL (8.5-10.1)
--- NOTE | 2019-06-28 08:00 | NUR ---
MS RN OPENING NOTES Received Patient resting in bed. A/O x 4. VS stable with no acute distress. Breathing even and unlabored on room air with no respiratory distress. No signs and symptoms of pain. 20g PIV on RFA clean, intact, patent and flushing well. Safety precautions in place. Bed locked and set to lowest position with side rails x 2 up. All needs rendered at this time. Call light within reach. Will continue to monitor.
[2019-06-28] MEDS: TRIUMEQ PO SCH (08:45)
[2019-06-28] MEDS: LACTOBACILLUS RHAMNOSUS GG 1 EACH CAP.SPRINK PO SCH (08:46)
[2019-06-28] MEDS: RIVAROXABAN 10 MG TABLET PO SCH (08:47)
[2019-06-28 09:09] LABS: *% CD 4 POS. LYMPH 31.7 % (30.8-58.5); *% CD 8 POS. LYMPH 56.8 % (12.0-35.5); *ABSOLUTE CD 4 HELPER 380 /uL (359-1519); *ABSOLUTE CD 8 SUPPRESSOR 682 /uL (109-897); *CD4/CD8 RATIO 0.56 (0.92-3.72)
[2019-06-28 09:11] VITALS: BP 118/65
[2019-06-28] MEDS ORDERED: CIPR-262 PO (11:18)
[2019-06-28] MEDS ORDERED: CLIN300C11 PO (11:18)
[2019-06-28] MEDS: HYDROCODONE/APAP 5/325MG 1 EACH TABLET PO PRN (13:21)
--- NOTE | 2019-06-28 13:25 | NUR ---
MS MOTOR HOTEL MANAGER NOTES Patient discharged for home at this time. Patient in stable condition. VS stable with no acute distress. Breathing even and unlabored on room air with no respiratory distress. Patient stated pain level of 6/10 on right lower ankle. Administered [place] 5-325mg x 1 tab PO. Skin assessment pictures taken and placed in chart. Wound dressing clean, dry, and intact. Medication reconciliation and discharge orders reviewed and explained to Patient. Patient verbalized understanding. All belongings with Patient. Patient will follow up with primary. Patient homeless and Homeless Waiver Consent signed and placed in chart. Provided TAP card per Patients request. Escorted Patient to the Lobby for safety.
== END 2019-06-28 13:27 | disposition home or self-care (01) | DRG 383 ==
LOC: ER 17:36 → MED 20:53
PROVIDERS: ADMIT Family Medicine; ATTEND Hospitalist
DX: L03.115 Cellulitis of right lower limb (principal); I82.411 Acute embolism and thrombosis of right femoral vein; L02.415 Cutaneous abscess of right lower limb; I87.2 Venous insufficiency (chronic) (peripheral); Z59.0 Homelessness; Z91.19 Patient's noncompliance with other medical treatment and regimen; Z91.14 Patient's other noncompliance with medication regimen; Z86.718 Personal history of other venous thrombosis and embolism; Z83.3 Family history of diabetes mellitus; Z79.01 Long term (current) use of anticoagulants; F12.90 Cannabis use, unspecified, uncomplicated; F10.10 Alcohol abuse, uncomplicated; E87.6 Hypokalemia; D53.9 Nutritional anemia, unspecified; Z88.6 Allergy status to analgesic agent; D72.819 Decreased white blood cell count, unspecified; Z72.0 Tobacco use; D63.8 Anemia in other chronic diseases classified elsewhere; B19.20 Unspecified viral hepatitis C without hepatic coma
CPT/HCPCS: 36415; 71045-TC; 73590-TC; 73610-TC; 80048-TC; 80061-TC; 80076-TC; 80202-TC; 83735-TC; 84100-TC; 85025-TC; 85730-TC; 86360; 87040-TC; 87070-TC; 87081-TC; 90715; 93971-TC; A6253; G0378; J2270; J2405; J2543; J3370; J3490; J7050; J7060

== ENCOUNTER 2019-07-19 12:29 | Inpatient (IN) | payer MEDICAID ==
[~2019-07-19] VITALS: Ht 170.2 cm; Wt 68.0 kg
[~2019-07-19 12:29] MED LIST changes: +ABAC1TAB15 PO; +CIPR-262 PO; +CLIN300C11 PO; -HIV MEDICATION PO; +RIVA10TA PO
--- NOTE | 2019-07-19 12:45 | NUR ---
BIB SELF C/O R LOWER LEG INFECTION, PT AWAKE, ALERT, -SOB, NAD NOTED, VSS, PENDING MD KUMAR
--- NOTE | 2019-07-19 13:55 | NUR ---
CALLED NURSING SUP FOR M/S BED.
[2019-07-19] MEDS ORDERED: PIPERACILLIN /TAZOBACTAM 3.375 G in IV D5W 50 ML IV ONE (14:00)
[2019-07-19] MEDS ORDERED: IV NS 0.9% 1,000 ML BAG IV ONE ×2 (14:00→16:00)
[2019-07-19] MEDS ORDERED: VANCOMYCIN 1 GM in IV D5W 250 ML IV ONE (14:00)
[2019-07-19 14:08] LABS: BASOPHILS % (AUTO) 1.2 % (0.0-2.0); EOSINOPHILS % (AUTO) 4.7 % (0.0-6.0); HEMATOCRIT 36 % (39-51); HEMOGLOBIN 12.2 g/dL (13.5-17.5); LYMPHOCYTES # (AUTO) 1.1 /CMM (0.8-4.8); LYMPHOCYTES % (AUTO) 38.6 % (20.0-44.0); MEAN CORPUSCULAR HGB CONC 34 g/dl (31.0-36.0); MEAN CORPUSCULAR VOLUME 101 fL (80-96); MONOCYTES # (AUTO) 0.3 /CMM (0.1-1.30); NEUTROPHILS # (AUTO) 1.2 /CMM (1.8-8.9); NEUTROPHILS % (AUTO) 44.5 % (43.0-81.0); PLATELET COUNT (AUTO) 240 /CMM (150-450); RED BLOOD CELL COUNT(AUTO) 3.51 MIL/uL (4.5-6.0); WHITE BLOOD COUNT (AUTO) 2.8 K/uL (4.3-11.0)
--- NOTE | 2019-07-19 14:31 | NUR ---
NURSING SUP GAVE BED 206-1.
--- NOTE | 2019-07-19 14:34 | NUR ---
report given to reyna dunlap for erica
[2019-07-19 14:42] LABS: CHLORIDE 105 mmol/L (98-107); POTASSIUM 3.4 mmol/L (3.5-5.1); SODIUM SERUM 141 mmol/L (136-145)
[2019-07-19 14:43] LABS: CALCIUM, SERUM 8.7 mg/dL (8.5-10.1); CARBON DIOXIDE 27 mmol/L (21-32); CREATININE 0.9 mg/dL (0.6-1.3); GLUCOSE 105 mg/dL (74-106); UREA NITROGEN, BLOOD 10 mg/dL (7-18)
[2019-07-19 14:46] LABS: ALANINE AMINOTRANSFERASE 26 U/L (12-78); ALKALINE PHOSPHATASE 64 U/L (46-116); ASPARTATE AMINOTRANSFERASE 22 U/L (15-37); BILIRUBIN,DIRECT 0.1 mg/dL (0.0-0.2); BILIRUBIN,TOTAL 0.2 mg/dL (0.2-1.0)
[2019-07-19 14:47] LABS: ALBUMIN 3.4 g/dL (3.4-5.0)
[2019-07-19 14:57] LABS: APPEARANCE,URINE Clear (CLEAR); BILIRUBIN,URINE Negative (NEGATIVE); BLOOD, URINE Negative Ery/uL (NEGATIVE); COLOR,URINE Yellow (YELLOW); KETONES,URINE Negative (NEGATIVE); LEUKOCYTE ESTERASE ,URINE Negative (NEGATIVE); NITRITE, URINE Negative (NEGATIVE); PH,URINE 5.5 (5.0-8.0); PROTEIN,URINE Negative (NEGATIVE); UGLUCOSE Negative (NEGATIVE); UROBILINOGEN,URINE 0.2 EU/dL (0.2)
[2019-07-19] MEDS ORDERED: ACETAMINOPHEN 325 MG TABLET PO PRN ×2 (16:00→18:00)
[2019-07-19] MEDS ORDERED: ACETAMINOPHEN ES 500 MG TABLET ONE (16:09)
--- NOTE | 2019-07-19 17:10 | NUR ---
PT TRANSPORTED TO 2ND FLOOR
[2019-07-19] MEDS ORDERED: FEE PK DOSING 1 MIN EA MC ONE (17:56)
[2019-07-19 18:00] VITALS: BP 150/85
[2019-07-19] MEDS ORDERED: ONDANSETRON HCL/PF 4 MG/2 ML VIAL IVP PRN (18:00)
[2019-07-19] MEDS ORDERED: ZOLPIDEM TARTRATE 5 MG TABLET PO PRN (18:00)
[2019-07-19] MEDS ORDERED: MAG HYDROX/AL HYDROX/SIMETH 30 ML UDC PO PRN (18:00)
[2019-07-19] MEDS ORDERED: HYDROCODONE/APAP 5/325MG 1 EACH TABLET PO PRN (18:00)
[2019-07-19] MEDS ORDERED: MAGNESIUM HYDROXIDE 30 ML UDC PO PRN (18:00)
--- NOTE | 2019-07-19 18:00 | NUR ---
RECEIVED PATIENT FROM ER VIA GURNEY. PATIENT ALERT AND ORIENTED X4, ABLE TO MAKE NEEDS KNOWN. NOT IN ANY FORM OF DISTRESS. NO SOB. DENIED PAIN AND DISCOMFORT AT THIS TIME. IV ACCESS ON RIGHT FOREARM INTACT AND PATENT. SITUATED PATIENT IN THE ROOM. INSTRUCTED TO USE CALL LIGHT FOR ASSISTANCE. BELONGINGS CHECKED BY MALGORZATA MICHEL, NOTED IN THE BELONGINGS CHART. KEPT PATIENT SAFE AND COMFORTABLE. BED IN LOW/EILEEN DPOSITION, SIDERAILS UPX2, CALL LIGHT IN REACH. WILL CONT TO MONITOR ACCORDINGLY.
[2019-07-19] MEDS: NICOTINE PATCH (21MG) 21 MG PATCH.TD24 TD SCH (18:16)
--- NOTE | 2019-07-19 18:30 | NUR ---
RN NOTES REFUSED SKIN ASSESSMENT FOR NOW. PER PATIENT, HE DOESNT HAVE ANY OTHER OPEN WOUNDS OR BRUISES IN HIS BODY. JUST THE RIGHT LOWER LEG. PATIENT WANTED TO REST AT THE MOMENT. PHOTO ON RIGHT LOWER LEG WAS TAKEN. REFUSED TO WEAR HOSPITAL GOWN AT THIS TIME.
--- NOTE | 2019-07-19 19:00 | NUR ---
RN NOTES PATIENT COULDNT PROVIDED TRIUMEQ. PHARMACIST ROSA NOTIFIED.
[2019-07-19] MEDS: HYDROCODONE/APAP 10/325MG 1 EA TABLET PO PRN (19:26)
--- NOTE | 2019-07-19 19:30 | NUR ---
rn closing notes Patient in stable condition. not in any form of distress. no sob. kept patient safe and comfortable. bed in low/locked position, siderial upx2, call light in reach. endorsed to night shift supervisor for erica.
--- NOTE | 2019-07-19 19:31 | NUR ---
rn pm opening notes bedside report recieved from reyna dunlap. Patient in stable condition. denies resp distress. new admission recently. not in any form of resp distress. breathing even and unlabored denies sob. bed in low/locked position, siderail upx2, call light in reach. reviewed poc pt verbalized understanding.
[2019-07-19 20:00] VITALS: BP_SYST 126; BP_SYST 143; BP_DIAS 83; BP_DIAS 87
[2019-07-19] MEDS: VANCOMYCIN HCL 0.75 GM in IV D5W 250 ML IV SCH (22:19)
[2019-07-20] MEDS: HYDROCODONE/APAP 10/325MG 1 EA TABLET PO PRN ×4 (03:01→19:47)
--- NOTE | 2019-07-20 03:08 | NUR ---
triumeq unavailable. preferred pharmacy updated. pt reports that he does not have triumeq and that he wont be able to get any while in the hospital. pt asked why he did not fill prescriptions from last admission and he states he did not know where his scripts went. states his preferred pharmacy is [facility] across the [address]. states they cover the cost of medications and he would be able to get scripts filled there. preferred pharmacy updated with new information.
[2019-07-20] MEDS: VANCOMYCIN HCL 0.75 GM in IV D5W 250 ML IV SCH ×3 (05:35→21:06)
--- NOTE | 2019-07-20 06:28 | NUR ---
rn pm closing notes Patient still in stable condition.pt seen with eyes closed in no apparent resp distress. breathing even and unlabored. bed in low/locked position, siderail upx2, call light in reach. iv 18 gauge to right fa patent and intact. no s/s of infiltration.
[2019-07-20 06:56] LABS: BASOPHILS % (AUTO) 0.5 % (0.0-2.0); EOSINOPHILS % (AUTO) 4.4 % (0.0-6.0); HEMATOCRIT 38 % (39-51); HEMOGLOBIN 12.9 g/dL (13.5-17.5); LYMPHOCYTES # (AUTO) 1.3 /CMM (0.8-4.8); LYMPHOCYTES % (AUTO) 40.1 % (20.0-44.0); MEAN CORPUSCULAR HGB CONC 34 g/dl (31.0-36.0); MEAN CORPUSCULAR VOLUME 101 fL (80-96); MONOCYTES # (AUTO) 0.3 /CMM (0.1-1.30); MONOCYTES % (AUTO) 9.8 % (2.0-12.0); NEUTROPHILS # (AUTO) 1.5 /CMM (1.8-8.9); NEUTROPHILS % (AUTO) 45.2 % (43.0-81.0); PLATELET COUNT (AUTO) 226 /CMM (150-450); RED BLOOD CELL COUNT(AUTO) 3.73 MIL/uL (4.5-6.0); WHITE BLOOD COUNT (AUTO) 3.3 K/uL (4.3-11.0)
--- NOTE | 2019-07-20 06:56 | NUR ---
INFECTION CONTROL CALLED AND LEFT MESSAGE IN REGUARDS TO PATIENT HISTORY OF HIV AND HEPATITIS C.
[2019-07-20 07:00] LABS: CALCIUM, SERUM 8.5 mg/dL (8.5-10.1); CREATININE 0.8 mg/dL (0.6-1.3); MAGNESIUM 1.9 mg/dL (1.8-2.4); PHOSPHORUS 3.7 mg/dL (2.5-4.9); POTASSIUM 3.6 mmol/L (3.5-5.1)
--- NOTE | 2019-07-20 07:15 | NUR ---
MS RN OPENING NOTES RECEIVED PATIENT IN BED ASLEEP, AROUSABLE TO VERBAL AND TACTILE STIMULI. NO SOB. DENIES ANY C/O PAIN NOR DISCOMFORT. ABLE TO VERBALIZE NEEDS. BED IN LOWEST POSITION, LOCKED. BED SIDERAILS UPX2. CALL LIGHT WITHIN REACH.
[2019-07-20 07:55] VITALS: BP 147/97
[2019-07-20] MEDS: NICOTINE PATCH (21MG) 21 MG PATCH.TD24 TD SCH (08:10)
[2019-07-20] MEDS ORDERED: TRIUMEQ PO SCH (09:00)
--- NOTE | 2019-07-20 09:22 | NUR ---
MS RN NOTES CALLED [facility] REGARDING TRIUMEQ, PER PATIENT HE LOST HIS MEDICATIONS AND OTHER BELONGINGS DURING THE RAIN AND HIS NEXT REFILL DATE IS NOT TILL SEPTEMBER. PHARMACY IS CURRENTLY CLOSED AND DOES NOT OPEN TILL MONDAY. ARLET CHAWLA FROM PHARMACY
[2019-07-20 16:00] VITALS: BP 141/83
[2019-07-20] MEDS: RIVAROXABAN 10 MG TABLET PO SCH (16:30)
--- NOTE | 2019-07-20 18:44 | NUR ---
MS RN CLOSING NOTES ALERT AND ORIENTED X4. NO S/S OF RESPIRATORY DISTRESS. DENIES ANY C/O PAIN NOR DISCOMFORT. AMBULATES INSIDE ROOM AND UNIT WITH STEADY GAIT. ON [place] WITHOUT S/S OF BLEEDING OBSERVED DURING THE SHIFT. LEFT FA SL # 18 INTACT AND PATENT. ABLE TO VERBALIZE NEEDS. BED IN LOWEST POSITION, LOCKED. BED SIDE RAILS UPX2. CALL LIGHT WITHIN REACH. IN NO APPARENT DISTRESS.
--- NOTE | 2019-07-20 19:30 | NUR ---
rn initial notes: received report from lety dunlap. pt in bed, c/o 10/ rle pain, requesting for norco. pt a/o x4, on ra respirations even and unlabored. had shower today, stated he felt a lot better. iv access patent and flushing well, on hl. discussed plan of care. safety precautions for fall initiated, call light in reach, will continue monitoring pt.
--- NOTE | 2019-07-20 19:48 | NUR ---
prn norco: pt c/o 10/10 rle pain, requesting for norco, prn norco 10/325 mg tab po administered to pt at this time, will continue to monitor and reassess.
[2019-07-20 20:00] VITALS: BP 141/81
[2019-07-20] MEDS: QUETIAPINE FUMARATE 25 MG TABLET PO SCH (21:06)
--- NOTE | 2019-07-21 06:02 | NUR ---
rn notes: awaiting for lab for vanco trough draw
--- NOTE | 2019-07-21 06:35 | NUR ---
rn notes: phleb just came to draw blood
--- NOTE | 2019-07-21 06:44 | NUR ---
RN CLOSING NOTES PT RESTING, ALERT AND ORIENTED X4. AMBULATES WITH STEADY GAIT. LEFT FA G18 REMAINS PATENT AND FLUSHING WELL, ON HL. NO S/S OF IV INFILTRATION NOTED. AWAITING RESULT OF VANCO TROUGH. VS REMAINS STABLE, NEEDS ATTENDED. SAFETY PRECAUTIONSFOR FALL REMAINS ENGAGED, CALL LIGHT IN REACH, WILL ENDORSE TO DAY RN FOR CONTINUITY OF CARE.
--- NOTE | 2019-07-21 07:07 | NUR ---
RN NOTES: UNABLE TO ADMINISTER 0600AM DOSE OF VANCO IV, STILL AWAITING RESULT FOR VANCO TROUGH
--- NOTE | 2019-07-21 07:19 | NUR ---
M/S RN OPENING NOTES RECEIVED PATIENT ON BED, A/O X4, RESPONSIVE TO ALL STIMULI. RESPIRATION WITH NO PRESENCE OF ACUTE RESPIRATORY DISTRESS. ABD SOFT AND NON DISTENDED WITH ACTIVE BOWEL SOUNDS, CONTINENT B&B. COMPLAIN OF PAIN 8/10 RIGHT RLE CELLULITIS. VANCOMYCIN TROUGH NOT RESULTED YET, PENDING VANCOMYCIN IV ORDERED TO ADMINISTER. SKIN WARM TO TOUCH AND DRY. IV ACCESS AT LEFT FA GAUGE 18, PATENT IN FLUSHING. ALL CONCERNS ADDRESSED. CALL LIGHT WITHIN REACHED. WILL CONTINUE TO MONITOR
[2019-07-21 07:40] LABS: CALCIUM, SERUM 8.3 mg/dL (8.5-10.1); CREATININE 0.8 mg/dL (0.6-1.3); POTASSIUM 4.2 mmol/L (3.5-5.1)
[2019-07-21 07:54] VITALS: BP 128/85
--- NOTE | 2019-07-21 07:54 | NUR ---
M/S RN NOTES VANCOMYCIN TROUGH RESULTED WITH 11. TO GIVE VANCOMYCIN ORDERED TROUGH WNL.
[2019-07-21] MEDS: VANCOMYCIN HCL 0.75 GM in IV D5W 250 ML IV SCH ×3 (07:59→21:48)
[2019-07-21] MEDS: HYDROCODONE/APAP 10/325MG 1 EA TABLET PO PRN ×3 (08:00→19:40)
[2019-07-21] MEDS: FLUOXETINE HCL 20 MG CAPSULE PO SCH (08:01)
--- NOTE | 2019-07-21 10:51 | NUR ---
M/S RN NOTES PT SEEN BY ANGELA DUMONT DNP. DISCHARGE PLANNING ORDERED TO BOARD AND CARE ON 07/22/2019. PT AWARE
[2019-07-21 16:00] VITALS: BP 125/77
[2019-07-21] MEDS: RIVAROXABAN 10 MG TABLET PO SCH (16:09)
--- NOTE | 2019-07-21 18:31 | NUR ---
M/S RN CLOSING NOTES PATIENT A/OX4, RESPONSIVE TO ALL STIMULI. RESPIRATION EVEN AND NON LABORED WITH NO ACUTE RESPIRATORY DISTRESS. ABDOMEN SOFT AND NON DISTENDED WITH ACTIVE BOWEL SOUNDS. PATIENT DENIES PAIN AND DISCOMFORT. SKIN WARM TO TOUCH AND DRY, NO NEW OPEN SKIN BREAKDOWN. RLE WITH +1 NON PITTING EDEMA, LEG ELEVATED/AMBULATE TOLERATED. IV SITE AT LEFT FA GAUGE 18 H/L, PATENT IN FLUSHING, SITE HAS NO S/SX OF INFILTRATION. ALL CARE AND CONCERNS ADDRESSED. CALL LIGHT WITHIN REACH. ENDORSED PATIENT CARE TO NEXT SHIFT.
--- NOTE | 2019-07-21 19:10 | NUR ---
rn initial notes: received report from karin dunlap. pt a/o x4, on ra respirations even and unlabored, pt c/o / rle pain, requesting for norco. iv access patent and flushing well, on hl. discussed plan of care. safety precautions for fall initiated, call light in reach, will continue monitoring pt.
--- NOTE | 2019-07-21 19:40 | NUR ---
prn norco: pt c/o pain on his rle, requesting for norco, prn norco 10/325 mg tab po administered to pt.
[2019-07-21 20:00] VITALS: BP 145/79
[2019-07-21 20:56] VITALS: BP 145/79
[2019-07-21] MEDS: QUETIAPINE FUMARATE 25 MG TABLET PO SCH (21:48)
--- NOTE | 2019-07-21 22:00 | NUR ---
RN NOTES: INFORMED ABOUT NEED TO TAKE PHOTO FOR SKIN ISSUE SINCE ITS MONDAY, BUT PT REFUSED, STATED IT WAS DONE BEFORE AND HE JUST WANTS TO SLEEP.
[2019-07-22] MEDS: VANCOMYCIN HCL 0.75 GM in IV D5W 250 ML IV SCH (05:18)
[2019-07-22 06:46] LABS: CALCIUM, SERUM 8.5 mg/dL (8.5-10.1); CREATININE 0.8 mg/dL (0.6-1.3); POTASSIUM 4.3 mmol/L (3.5-5.1)
--- NOTE | 2019-07-22 06:52 | NUR ---
RN CLOSING NOTES PT RESTING, ALERT AND ORIENTED X4. PRN NORCO ADMINISTERED FOR C/O PAIN ON RLE. NO S/S OF ACTIVE BLEEDING NOTED, PT ON XARELTO. AMBULATES WITH STEADY GAIT. LEFT FA G18 REMAINS PATENT AND FLUSHING WELL, ON HL. NO S/S OF IV INFILTRATION NOTED.FOR DC PLANNING TODAY. VS REMAINS STABLE, NEEDS ATTENDED. SAFETY PRECAUTIONS FOR FALL REMAINS ENGAGED, CALL LIGHT IN REACH, WILL ENDORSE TO DAY RN FOR CONTINUITY OF CARE.
[2019-07-22] MEDS: HYDROCODONE/APAP 10/325MG 1 EA TABLET PO PRN (07:55)
[2019-07-22] MEDS: FLUOXETINE HCL 20 MG CAPSULE PO SCH (07:55)
--- NOTE | 2019-07-22 07:55 | NUR ---
RN NOTES ADMINISTERED NARCO 10 PO PRN FOR RIGHT LEG PAIN PER PATIENT REQUEST 05/16, V/S TAKEN BP-125/79, P-57, CONTINUED MONITORING.
[2019-07-22 08:00] VITALS: BP 125/79
--- NOTE | 2019-07-22 08:57 | NUR ---
real estate services coordinator consult requested by Keenan Cotto DNP to initiate discharge planning and HIV medications. Pt is a 34 year old male who was admitted to [facility] for cellulitis r lower leg. Pt was laying down in bed and appeared disheveled. Pt is alert and oriented x 4 (self, time, place, situation). 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 Pt stays in a homeless encampment across the street from the hospital. Pt denies alcohol and cigarette use, but states I only use mariajuana. Pt states he has a diagnosis of schizophrenia and bipolar disorder, and states he receives mental health care and medical health care from [facility]) [facility] care centers. Pt states he would like to be discharged to a board and care facility. Pt receives $200 in monthly General Relief benefits, and $200 in [employer] assistance. Pt states he has also recently applied for SSI. Pt denies suicidal and homicidal ideation. Pt denies visual and auditory hallucinations. MIGUELANGEL referred pt to [facility] who will be working with pt to explore board and care placement options for discharge. SW available if needed.
--- NOTE | 2019-07-22 09:50 | NUR ---
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 MIGUELANGEL also provided the following senior care referrals to pt: [place] [facility] [address] [facility] [address] , [facility] [address] [facility]. [facility] [address] , and the [facility]. Pt again confirmed that he receives his medications from [facility] located at [address], [address], [facility] [address]; [phone]. Pt states that he stays in this area to be close to the clinic. Pt would like to be discharged as soon as possible so he can return to his encampment before people take my stuff. Pt. denies suicidal and homicidal ideation, and auditory or visual hallucinations at this time. Pt. signed homeless waiver and it was placed in chart. Pt. will require a TAP card upon discharge. No other services needed at this time. SW is available if needed.
--- NOTE | 2019-07-22 10:11 | NUR ---
rn notes patient will d/c homeless [facility] per hospitalist order, patient will continued antibiotics on x10 days.
--- NOTE | 2019-07-22 11:03 | NUR ---
TOOL KEEPER NOTES PATIENT DISCHARGE AT THIS TIME GOING H[facility]ELESS [facility]. PATIENT STABLE, REFUSED PAIN, V/S WNL. MED RECONCILIATION AND DISCHARGE ORDER REVIEWED AND EXPLAINED TO PATIENT. PATIENT VERBALIZED UNDERSTANDING. PRESCRIPTION HANDED TO THE PATIENT. PATIENT WILL FOLLOW PRIMARY MD AND TAKE ANTIBIOTIC X10 DAYS PRESCRIBED. PATIENT SIGN PAPERWORK, PICTURE TAKEN. ESCORTED PATIENT TO THE LOBBY FOR SAFETY. PATIENT TAKE A BUS.
[2019-07-22] MEDS ORDERED: TRIUMEQ PO SCH (11:15)
== END 2019-07-22 13:40 | disposition home or self-care (01) | DRG 383 ==
LOC: ER 12:31 → MEDSG2 14:32 → UNDODISIN 07-22 11:09
PROVIDERS: ADMIT Nurse Practitioner Acute Care; ATTEND Nurse Practitioner Acute Care
DX: L03.115 Cellulitis of right lower limb (principal); I82.411 Acute embolism and thrombosis of right femoral vein; D89.9 Disorder involving the immune mechanism, unspecified; B19.20 Unspecified viral hepatitis C without hepatic coma; Z59.0 Homelessness; Z91.19 Patient's noncompliance with other medical treatment and regimen; Z83.3 Family history of diabetes mellitus; Z79.01 Long term (current) use of anticoagulants; Z72.0 Tobacco use; F12.90 Cannabis use, unspecified, uncomplicated
CPT/HCPCS: 36415; 80048-TC; 80076-TC; 80202-TC; 81000-TC; 83605-TC; 83735-TC; 84100-TC; 85025-TC; 87040-TC; 87081-TC; G0378; G0480; J2543; J3370; J7030; J7050; J7060

== ENCOUNTER 2020-01-10 09:26 | Emergency (ER) | payer MEDICAID ==
[~2020-01-10] VITALS: Ht 170.2 cm; Wt 68.0 kg
[~2020-01-10 09:26] MED LIST changes: -CIPR-262 PO; -CLIN300C11 PO
[2020-01-10 09:41] VITALS: BP 136/20
--- NOTE | 2020-01-10 10:03 | NUR ---
Patient discharged to home in stable condition. Written and verbal after care instructions given. Patient verbalizes understanding of instruction.
== END 2020-01-10 10:02 | disposition home or self-care (01) ==
LOC: ER 09:31
DX: L03.115 Cellulitis of right lower limb (principal); Z86.19 Personal history of other infectious and parasitic diseases; Z88.6 Allergy status to analgesic agent; Z59.0 Homelessness; Z79.899 Other long term (current) drug therapy; Z86.718 Personal history of other venous thrombosis and embolism

== ENCOUNTER 2020-01-17 11:15 | Emergency (ER) | payer MEDICAID ==
[~2020-01-17] VITALS: Ht 167.6 cm; Wt 65.8 kg
[2020-01-17 11:20] VITALS: BP 153/97
--- NOTE | 2020-01-17 11:22 | NUR ---
SEEN AND EXAMINED BY DR. RITTER.
--- NOTE | 2020-01-17 11:48 | NUR ---
Patient given written and verbal discharge instructions. Patient verbalizes understanding of instructions. Patient is ambulatory with steady gait. Refuses offer of senior care placement. Patient given list of available shelters in surrounding area.
== END 2020-01-17 11:49 | disposition home or self-care (01) ==
LOC: ER 11:18
DX: L03.115 Cellulitis of right lower limb (principal); Z76.0 Encounter for issue of repeat prescription; Z86.73 Personal history of transient ischemic attack (TIA), and cerebral infarction without residual deficits; Z86.19 Personal history of other infectious and parasitic diseases; Z88.6 Allergy status to analgesic agent; Z59.0 Homelessness; Z79.899 Other long term (current) drug therapy

== ENCOUNTER 2020-03-03 12:54 | Emergency (ER) | payer MEDICAID ==
[~2020-03-03] VITALS: Ht 167.6 cm; Wt 65.8 kg
[2020-03-03 13:05] VITALS: BP 142/87
== END 2020-03-03 14:48 | disposition home or self-care (01) ==
LOC: ER 12:56
DX: I87.8 Other specified disorders of veins (principal); Z86.73 Personal history of transient ischemic attack (TIA), and cerebral infarction without residual deficits; Z86.19 Personal history of other infectious and parasitic diseases; Z88.6 Allergy status to analgesic agent; Z59.0 Homelessness; Z79.899 Other long term (current) drug therapy

== ENCOUNTER 2020-04-12 21:28 | Observation (INO) | payer MEDICAID ==
[~2020-04-12] VITALS: Ht 167.6 cm; Wt 65.8 kg
--- NOTE | 2020-04-12 21:40 | NUR ---
BIB EMS FROM STREET C/O WORSENING RLE WOUND. PT AAOX3, VSS. RR EVEN & UNLABORED. DENIES CP, SOB, DIZZINESS, N/V AT THIS TIME. AWAITING EVAL BY BAY. WILL CONT TO MONITOR.
[2020-04-12 22:08] LABS: BASOPHILS % (AUTO) 0.9 % (0.0-2.0); EOSINOPHILS % (AUTO) 1.8 % (0.0-6.0); HEMATOCRIT 43 % (39-51); HEMOGLOBIN 14.2 g/dL (13.5-17.5); LYMPHOCYTES % (AUTO) 43.2 % (20.0-44.0); MEAN CORPUSCULAR HGB CONC 33 g/dl (31.0-36.0); MEAN CORPUSCULAR VOLUME 104 fL (80-96); MONOCYTES # (AUTO) 0.5 /CMM (0.1-1.30); MONOCYTES % (AUTO) 10.2 % (2.0-12.0); NEUTROPHILS % (AUTO) 43.9 % (43.0-81.0); PLATELET COUNT (AUTO) 225 /CMM (150-450); RED BLOOD CELL COUNT(AUTO) 4.12 MIL/uL (4.5-6.0); WHITE BLOOD COUNT (AUTO) 4.5 K/uL (4.3-11.0)
[2020-04-12 22:24] LABS: CALCIUM, SERUM 8.7 mg/dL (8.5-10.1); CREATININE 1.5 mg/dL (0.6-1.3); POTASSIUM 3.3 mmol/L (3.5-5.1)
[2020-04-12 22:40] LABS: EOSINOPHILS % (MANUAL) 3 % (0-4); MONOCYTES % (MANUAL) 10 % (0-11.0); NEUTROPHILS % (MANUAL) 46 (42-76)
[2020-04-12 22:41] LABS: LYMPHOCYTES % (MANUAL) 41 % (16-48)
[2020-04-12] MEDS ORDERED: IV NS 0.9% 1,000 ML BAG IV ONE (23:00)
--- NOTE | 2020-04-12 23:04 | NUR ---
PT SEEN & EVAL'D BY DR. YBARRA. WILL CONT TO MONITOR.
--- NOTE | 2020-04-12 23:47 | NUR ---
RETURNED FROM CT.
[2020-04-13] MEDS ORDERED: IV NS 0.9% 1,000 ML IV PRN (01:23)
--- NOTE | 2020-04-13 01:23 | NUR ---
PATIENT IS STANDING UP NEXT TO BEDSIDE. PATIENT IS STRETCHING. PATIENT IS BREATHING EVENLY AND UNLABORED ON ROOM AIR. SITTER AT BEDSIDE.
[2020-04-13] MEDS ORDERED: ONDANSETRON HCL/PF 4 MG/2 ML VIAL IVP PRN (01:30)
[2020-04-13] MEDS ORDERED: ACETAMINOPHEN 325 MG TABLET PO PRN (01:30)
[2020-04-13] MEDS ORDERED: Z GUARD REMEDY 2 OZ OINT TP PRN (01:30)
[2020-04-13] MEDS ORDERED: ZOLPIDEM TARTRATE 5 MG TABLET PO PRN (01:30)
[2020-04-13] MEDS ORDERED: HYDROCODONE/APAP 5/325MG TABLET PO PRN (01:30)
[2020-04-13 07:02] LABS: BASOPHILS % (AUTO) 1.4 % (0.0-2.0); EOSINOPHILS % (AUTO) 3.1 % (0.0-6.0); HEMATOCRIT 37 % (39-51); HEMOGLOBIN 12.6 g/dL (13.5-17.5); LYMPHOCYTES # (AUTO) 0.9 /CMM (0.8-4.8); LYMPHOCYTES % (AUTO) 32.2 % (20.0-44.0); MEAN CORPUSCULAR HGB CONC 34 g/dl (31.0-36.0); MEAN CORPUSCULAR VOLUME 103 fL (80-96); MONOCYTES # (AUTO) 0.3 /CMM (0.1-1.30); MONOCYTES % (AUTO) 11.3 % (2.0-12.0); NEUTROPHILS # (AUTO) 1.4 /CMM (1.8-8.9); PLATELET COUNT (AUTO) 166 /CMM (150-450); RED BLOOD CELL COUNT(AUTO) 3.59 MIL/uL (4.5-6.0); WHITE BLOOD COUNT (AUTO) 2.7 K/uL (4.3-11.0)
[2020-04-13 07:20] LABS: ALBUMIN 3.4 g/dL (3.4-5.0); BILIRUBIN,TOTAL 0.8 mg/dL (0.2-1.0); CALCIUM, SERUM 8.1 mg/dL (8.5-10.1); CREATININE 0.8 mg/dL (0.6-1.3); PHOSPHORUS 3.6 mg/dL (2.5-4.9); POTASSIUM 3.6 mmol/L (3.5-5.1); TOTAL PROTEIN, SERUM 7.6 g/dL (6.4-8.2)
[2020-04-13 07:21] LABS: THYROID STIMULATING HORMONE 0.935 uIU/mL (0.358-3.74)
--- NOTE | 2020-04-13 07:58 | NUR ---
PATIENT IN BED ASLEEP, EASILY AROUSABLE BY VOICE, HOOKED TO MONITOR, VSS. WILL CONTINUE TO MONITOR ACCORDINGLY.
[2020-04-13] MEDS ORDERED: ENOXAPARIN SODIUM 40 MG/0.4 ML DISP.SYRIN SQ SCH (09:00)
--- NOTE | 2020-04-13 09:57 | NUR ---
PATIENT AWAKE IN BED, AAO x 3, STOOD UP AND WALKED AROUND ROOM AREA. HOOKED TO MONITOR, WILL CONTINUE TO MONITOR ACCORDINGLY.
[2020-04-13 10:31] LABS: EOSINOPHILS % (MANUAL) 3 % (0-4); LYMPHOCYTES % (MANUAL) 36 % (16-48); MONOCYTES % (MANUAL) 13 % (0-11.0); NEUTROPHILS % (MANUAL) 48 (42-76)
--- NOTE | 2020-04-13 17:25 | NUR ---
PT AWAKE ON BED AAOX3, NOT IN RESPIRATORY DISTRESS, V/S STALBE, KEPT RESTED AND COMFORTABLE. WILL CONTINUE TO MONITOR.
[2020-04-13 17:37] VITALS: BP 130/71
--- NOTE | 2020-04-13 17:38 | NUR ---
Patient does not wish to proceed with medical care recommended by Dr. Galindo. Patient given information related to possible complications, up to and including , which could occur as a result of leaving the hospital at this time. Patient verbalizes understanding of risks involved due to leaving against medical advice. Patient has signed AMA form.
== END 2020-04-13 17:38 | disposition left against medical advice (07) ==
LOC: ER 21:29 → TRANSITION 04-13 02:28
DX: N17.9 Acute kidney failure, unspecified (principal); T67.5XXA Heat exhaustion, unspecified, initial encounter; X30.XXXA Exposure to excessive natural heat, initial encounter; Y92.410 Unspecified street and highway as the place of occurrence of the external cause; F17.210 Nicotine dependence, cigarettes, uncomplicated; Z86.718 Personal history of other venous thrombosis and embolism; B19.20 Unspecified viral hepatitis C without hepatic coma; Y93.01 Activity, walking, marching and hiking; D72.819 Decreased white blood cell count, unspecified; D53.9 Nutritional anemia, unspecified; Z88.6 Allergy status to analgesic agent; Z79.01 Long term (current) use of anticoagulants; Y90.8 Blood alcohol level of 240 mg/100 ml or more; F10.229 Alcohol dependence with intoxication, unspecified; S81.801A Unspecified open wound, right lower leg, initial encounter; E87.0 Hyperosmolality and hypernatremia; E87.6 Hypokalemia; Z59.0 Homelessness; Z83.3 Family history of diabetes mellitus
CPT/HCPCS: 36415 ×2; 70450; 80048; 80053; 80061; 80307 ×2; 82140; 83036; 83690; 83735; 84100; 84443; 84484; 85025 ×2; 87040 ×2; 87081; 93005; G0378 ×15; J7030; G0480; J1650; J2405

== ENCOUNTER 2020-05-08 11:46 | Emergency (ER) | payer MEDICAID ==
[~2020-05-08] VITALS: Ht 165.1 cm; Wt 63.5 kg
[2020-05-08 12:04] VITALS: BP 154/94
--- NOTE | 2020-05-08 14:01 | NUR ---
Pt Eloped-NOT in [place]
== END 2020-05-08 14:02 | disposition home or self-care (01) ==
LOC: ER 11:50
DX: Z53.21 Procedure and treatment not carried out due to patient leaving prior to being seen by health care provider (principal)

== ENCOUNTER 2020-08-12 00:41 | Emergency (ER) | payer OTHER ==
[~2020-08-12] VITALS: Ht 167.6 cm; Wt 61.2 kg
[2020-08-12 00:52] VITALS: BP 133/92
[2020-08-12] MEDS ORDERED: IBUPROFEN 600 MG TABLET PO ONE (01:30)
[2020-08-12] MEDS ORDERED: IBUPROFEN 600 MG TABLET ONE (01:42)
== END 2020-08-12 01:51 | disposition home or self-care (01) ==
LOC: ER 00:43
DX: S02.2XXA Fracture of nasal bones, initial encounter for closed fracture (principal); S82.041A Displaced comminuted fracture of right patella, initial encounter for closed fracture; Z86.73 Personal history of transient ischemic attack (TIA), and cerebral infarction without residual deficits; Z86.19 Personal history of other infectious and parasitic diseases; Z88.6 Allergy status to analgesic agent; Z59.0 Homelessness; Z79.899 Other long term (current) drug therapy; W18.39XA Other fall on same level, initial encounter; Y93.89 Activity, other specified; Y92.89 Other specified places as the place of occurrence of the external cause; Y99.8 Other external cause status
CPT/HCPCS: 70160-TC; 73564-TC